=== PATIENT | female | born 1955 | race Caucasian/White ===

== ENCOUNTER 2017-02-22 09:18 | Day surgery (SDC) | payer MEDICARE, OTHER ==
[~2017-02-22] VITALS: Ht 152.4 cm; Wt 60.9 kg
[~2017-02-22 09:18] MED LIST: ACET325 PO; ALBU90OI6 INH; AZIT250 PO; ESCI10 PO; FAMO20 PO; PRED20 PO; PROCODE120 PO; RXTRAM50 PO; TIOT18; TRAM50 PO
[2017-02-22] MEDS ORDERED: CLON.5 PO (09:34)
[2017-02-22] MEDS ORDERED: VITAMIN D5000 UNI1 PO (09:34)
== END 2017-02-22 10:47 | disposition home or self-care (01) ==
LOC: ORSCSDS 09:18
PROVIDERS: Surgery
PROC: 0DJD8ZZ Inspection of Lower Intestinal Tract, Via Natural or Artificial Opening Endoscopic (ICD-10-PCS; principal; 2017-02-22 11:00)
DX: Z12.11 Encounter for screening for malignant neoplasm of colon (principal); Z85.038 Personal history of other malignant neoplasm of large intestine; J44.9 Chronic obstructive pulmonary disease, unspecified; F41.8 Other specified anxiety disorders; E78.5 Hyperlipidemia, unspecified; F17.210 Nicotine dependence, cigarettes, uncomplicated; Z79.899 Other long term (current) drug therapy
CPT/HCPCS: J7120

== ENCOUNTER 2018-07-26 11:59 | Emergency (ER) | payer MEDICARE, OTHER ==
[~2018-07-26] VITALS: Ht 152.4 cm; Wt 63.5 kg
[~2018-07-26 11:59] MED LIST changes: +CLON.5 PO; +VITAMIN D5000 UNI1 PO
[2018-07-26] MEDS ORDERED: WIXELA 500-501 EACH (12:12)
[2018-07-26] MEDS ORDERED: VENL150ER PO (12:13)
[2018-07-26] MEDS ORDERED: LORA1 PO (12:13)
[2018-07-26 12:43] LABS: BASOPHILS ABSOLUTE AUTO 0.03 K/mm3 (0.00-0.23); BASOPHILS PERCENT AUTO 0 % (0-2); EOSINOPHILS ABSOLUTE AUTO 0.03 K/mm3 (0.00-0.68); EOSINOPHILS PERCENT AUTO 0 % (0-6); Hematocrit 40.8 % (33.0-51.0); Hemoglobin 13.4 g/dL (11.5-16.0); IMMATURE GRAN ABSOLUTE AUTO 0.03 K/mm3 (0.00-0.10); IMMATURE GRAN PERCENT AUTO 0 % (0-1); LYMPHOCYTES ABSOLUTE AUTO 1.46 K/mm3 (0.84-5.20); LYMPHOCYTES PERCENT AUTO 20 % (21-46); MONOCYTES ABSOLUTE AUTO 0.47 K/mm3 (0.16-1.47); MONOCYTES PERCENT AUTO 6 % (4-13); Mean Corpuscular HGB Conc 32.8 g/dL (31.5-36.5); Mean Corpuscular Volume 94 fL (80-100); Mean Platelet Volume 10.2 fL (9.1-12.4); NEUTROPHILS ABSOLUTE AUTO 5.31 K/mm3 (1.96-9.15); NEUTROPHILS PERCENT AUTO 73 % (41-73); Platelet Count 243 K/mm3 (150-400); Red Blood Cell Count 4.32 M/mm3 (3.80-5.20); White Blood Cell Count 7.33 K/mm3 (4.00-11.30)
[2018-07-26 13:05] LABS: Alanine Aminotransfer (ALT/SGP 20 U/L (12-78); Albumin/Globulin Ratio 1.1 (0.8-1.8); Alk Phos 86 U/L (50-136); Anion Gap 4 mmol/L (6-16); Aspartate Aminotrans (AST/SGOT 22 U/L (12-37); Bilirubin, Total 0.3 mg/dL (0.1-1.0); Blood Urea Nitrogen 13 mg/dL (8-24); Bun/Creatinine Ratio 19.8 (12.0-20.0); CO2, Blood 29 mmol/L (21-32); Calcium, Blood 8.9 mg/dL (8.5-10.1); Chloride, Blood 105 mmol/L (98-108); Creatinine, Blood 0.66 mg/dL (0.40-1.00); Globulin, Blood 3.6 g/dL (2.2-4.0); Glomerular Filtration Rate >60 (60-); Glucose, Blood 103 mg/dL (70-99); Potassium, Blood 3.4 mmol/L (3.5-5.5); Sodium, Blood 138 mmol/L (136-145); Total Protein, Blood 7.6 g/dL (6.4-8.2)
== END 2018-07-26 14:37 | disposition home or self-care (01) ==
LOC: ER 11:59
PROVIDERS: Physician Assistant
DX: R55 Syncope and collapse (principal); F32.9 Major depressive disorder, single episode, unspecified; F17.200 Nicotine dependence, unspecified, uncomplicated; Z88.0 Allergy status to penicillin; Z79.899 Other long term (current) drug therapy
CPT/HCPCS: 36415; 71046; 80053; 84484; 85025; 93005; 93010; 96361; 96374; 99284-25; J2405; J7030

== ENCOUNTER 2021-03-13 17:44 | Inpatient (IN) | payer OTHER, MEDICARE ==
[~2021-03-13] VITALS: Ht 162.6 cm; Wt 65.8 kg
[~2021-03-13 17:44] MED LIST changes: +LORA1 PO; +VENL150ER PO; -VITAMIN D5000 UNI1 PO; +Vitamin D1000 UNI1 PO; +WIXELA 500-501 EACH
[2021-03-13 18:16] LABS: BASOPHILS ABSOLUTE AUTO 0.04 K/mm3 (0.00-0.23); BASOPHILS PERCENT AUTO 1 % (0-2); EOSINOPHILS ABSOLUTE AUTO 0.11 K/mm3 (0.00-0.68); EOSINOPHILS PERCENT AUTO 2 % (0-6); Hematocrit 43.3 % (33.0-51.0); Hemoglobin 14.5 g/dL (11.5-16.0); IMMATURE GRAN ABSOLUTE AUTO 0.02 K/mm3 (0.00-0.10); IMMATURE GRAN PERCENT AUTO 0 % (0-1); LYMPHOCYTES ABSOLUTE AUTO 0.87 K/mm3 (0.84-5.20); LYMPHOCYTES PERCENT AUTO 12 % (21-46); MONOCYTES ABSOLUTE AUTO 0.74 K/mm3 (0.16-1.47); MONOCYTES PERCENT AUTO 10 % (4-13); Mean Corpuscular HGB Conc 33.5 g/dL (31.5-36.5); Mean Corpuscular Volume 90 fL (80-100); Mean Platelet Volume 10.8 fL (9.1-12.4); NEUTROPHILS ABSOLUTE AUTO 5.57 K/mm3 (1.96-9.15); NEUTROPHILS PERCENT AUTO 76 % (41-73); Platelet Count 334 K/mm3 (150-400); RDW Coefficient Variation 12.9 % (11.7-14.2); RDW Standard Deviation 42.5 fL (35.1-46.3); Red Blood Cell Count 4.84 M/mm3 (3.80-5.20); White Blood Cell Count 7.35 K/mm3 (4.00-11.30)
[2021-03-13 18:41] LABS: Alanine Aminotransfer (ALT/SGP 22 U/L (12-78); Albumin, Blood 4.1 g/dL (3.4-5.0); Albumin/Globulin Ratio 1.2 (0.8-1.8); Alk Phos 94 U/L (50-136); Anion Gap 7 mmol/L (6-16); Aspartate Aminotrans (AST/SGOT 19 U/L (12-37); Bilirubin, Total 0.3 mg/dL (0.1-1.0); Blood Urea Nitrogen 11 mg/dL (8-24); Bun/Creatinine Ratio 16.6 (12.0-20.0); CO2, Blood 27 mmol/L (21-32); Calcium, Blood 9.7 mg/dL (8.5-10.1); Chloride, Blood 102 mmol/L (98-108); Creatinine, Blood 0.66 mg/dL (0.40-1.00); Globulin, Blood 3.3 g/dL (2.2-4.0); Glomerular Filtration Rate >60 (60-); Glucose, Blood 109 mg/dL (70-99); Potassium, Blood 4.1 mmol/L (3.5-5.5); Sodium, Blood 136 mmol/L (136-145); Total Protein, Blood 7.4 g/dL (6.4-8.2); Troponin I 0.233 ng/mL (0.000-0.040)
[2021-03-13] MEDS ORDERED: INGREZZA40 MG PO (23:30)
[2021-03-13] MEDS ORDERED: INGREZZA60 MG PO (23:31)
[2021-03-13] MEDS ORDERED: DESVENLAFAXINE100 M3 PO (23:32)
[2021-03-14 01:48] LABS: Influenza A, PCR NEGATIVE (NEGATIVE); Influenza B, PCR NEGATIVE (NEGATIVE); Resp Syncytial Virus, PCR NEGATIVE (NEGATIVE); SARS-Cov-2 (COVID-19) PCR, MMC NEGATIVE (NEGATIVE)
[2021-03-14 04:15] LABS: BASOPHILS ABSOLUTE AUTO 0.03 K/mm3 (0.00-0.23); BASOPHILS PERCENT AUTO 0 % (0-2); EOSINOPHILS ABSOLUTE AUTO 0.07 K/mm3 (0.00-0.68); EOSINOPHILS PERCENT AUTO 1 % (0-6); Hemoglobin 13.3 g/dL (11.5-16.0); IMMATURE GRAN ABSOLUTE AUTO 0.03 K/mm3 (0.00-0.10); IMMATURE GRAN PERCENT AUTO 0 % (0-1); LYMPHOCYTES ABSOLUTE AUTO 1.15 K/mm3 (0.84-5.20); LYMPHOCYTES PERCENT AUTO 15 % (21-46); MONOCYTES ABSOLUTE AUTO 0.95 K/mm3 (0.16-1.47); MONOCYTES PERCENT AUTO 12 % (4-13); Mean Corpuscular HGB 29.4 pg (26.0-34.0); Mean Corpuscular HGB Conc 33.3 g/dL (31.5-36.5); Mean Corpuscular Volume 89 fL (80-100); Mean Platelet Volume 10.5 fL (9.1-12.4); NEUTROPHILS PERCENT AUTO 71 % (41-73); Platelet Count 315 K/mm3 (150-400); RDW Coefficient Variation 12.9 % (11.7-14.2); Red Blood Cell Count 4.52 M/mm3 (3.80-5.20); White Blood Cell Count 7.73 K/mm3 (4.00-11.30)
[2021-03-14 04:54] LABS: LDL/HDL RATIO 3.3; Very Low Density Lipoprot Chol 18 mg/dL (6-32)
[2021-03-14 04:55] LABS: Alanine Aminotransfer (ALT/SGP 22 U/L (12-78); Albumin, Blood 3.5 g/dL (3.4-5.0); Albumin/Globulin Ratio 0.9 (0.8-1.8); Alk Phos 83 U/L (50-136); Anion Gap 8 mmol/L (6-16); Aspartate Aminotrans (AST/SGOT 26 U/L (12-37); Bilirubin, Total 0.3 mg/dL (0.1-1.0); Blood Urea Nitrogen 9 mg/dL (8-24); Bun/Creatinine Ratio 15.5 (12.0-20.0); CHOL/HDL RATIO 4.7; CO2, Blood 25 mmol/L (21-32); Calcium, Blood 9.3 mg/dL (8.5-10.1); Chloride, Blood 104 mmol/L (98-108); Cholesterol 220 mg/dL (50-200); Creatinine, Blood 0.58 mg/dL (0.40-1.00); Globulin, Blood 3.7 g/dL (2.2-4.0); Glomerular Filtration Rate >60 (60-); Glucose, Blood 119 mg/dL (70-99); HDL Cholesterol 47 mg/dL (>39); Low Density Lipoprotein Chol 155 mg/dL (0-110); Potassium, Blood 3.8 mmol/L (3.5-5.5); Sodium, Blood 137 mmol/L (136-145); Total Protein, Blood 7.2 g/dL (6.4-8.2); Triglycerides 92 mg/dL (30-160)
--- NOTE | 2021-03-14 06:41 | NUR ---
SHIFT SUMMARY PT IS ALERT AND ORIENTED. DENIES CHEST PAIN/ PRESSURE. DENIES SOB. VITALS ARE STABLE. IS ON ROOM AIR. PT WAS ABLE TO AMBULATE TO BED FROM [facility] UPON ARRIVAL. HERPARIN GTT INFUSING. CALL LIGHT IS WITHIN REACH.
--- NOTE | 2021-03-14 17:30 | NUR ---
DR RAMAN IN TO SEE PT THIS AM. PT AGREES TO ANGIOGRAM ON TUESDAY. TRENDING TROPONINS PER MD ORDERS. PT REPORTS NO CHEST PAIN OR SOB TODAY. NO ACUTE EVENTS. WILL CONTINUE TO MONITOR AND REPORT OFF TO LISETH HUFF.
--- NOTE | 2021-03-14 19:44 | NUR ---
CALLED DR ENCISO FOR BREATHING TREATMENT BD PROTOCOL, PT REQUEST AND HISTORY OF COPD. FURTHER ORDERS ENTERED INTO EMAR.
[2021-03-15 02:18] LABS: Hematocrit 39.7 % (33.0-51.0); Hemoglobin 13.4 g/dL (11.5-16.0); Mean Platelet Volume 10.3 fL (9.1-12.4); Platelet Count 291 K/mm3 (150-400)
--- NOTE | 2021-03-15 06:00 | NUR ---
SHIFT SUMMARY PT IS ALERT AND ORIENTED. PT MELA CHEST PAIN/PRESSURE. VITAL SIGNS ARE STABLE AND IS ON ROOM AIR. PT REPORTED FEELING "WINDED" AT TIMES IN THE BEGINING OF SHIFT AND THEN RECIEVED A BREATHING TREAMENT WHICH SEEMED TO HELP. PT IS ABLE TO GO TO BATHROOM SBA. CALL LIGHT IS WITHIN REACH.
--- NOTE | 2021-03-15 18:09 | NUR ---
NO ACUTE EVENTS THIS SHIFT. PT DENIES CHEST PAIN/SOB THROUGHOUT THE DAY. PLAN FOR ANGIOGRAM TOMORROW, NPO AFTER MIDNIGHT, PT VERBALIZES UNDERSTANDING. WILL CONTINUE TO MONITOR AND GIVE REPORT TO NOC SHIFT RN.
[2021-03-16 04:13] LABS: Hematocrit 38.4 % (33.0-51.0); Hemoglobin 13.1 g/dL (11.5-16.0); Mean Platelet Volume 11.3 fL (9.1-12.4); Platelet Count 279 K/mm3 (150-400)
--- NOTE | 2021-03-16 06:00 | NUR ---
SUMMARY NO NEW ISSUES NOTED. PT DENIES CP OR SOB. PT NPO SINCE 0000 HRS. PT SLEPT THROUGHOUT SHIFT WITHOUT INCIDENT. CALL LIGHT IN REACH.
--- NOTE | 2021-03-16 08:04 | NUR ---
RECIEVED MORNING REPORT AND ADMINISTERED MORNING MEDICATION. PT IS RESTING COMOFRTABLY IN BED, NO SIGNS OF DISTRESS AND STATES SHE HAS NO PAIN. DENIES DESIRE TO BATHE OR BURSH HER TEETH AT THIS TIME SHE IS WAITING ON CLEAN CLOTHES TO ARRIVE FROM HER . USED RESTROOM PRIOR TO ASSESSMENT, ABLE TO AMBULATE ON HER OWN. A&O X4, VS STABLE. NPO STATUS DUE TO ANGIOGRAM THIS AFTERNOON. PT STATED SHE DOES NOT NEED ANYTHING AT THIS TIME, CALL LIGHT AND ICE CHIPS WITHIN REACH.
--- NOTE | 2021-03-16 11:40 | NUR ---
Update: Patient arrived back from the earthmoving labourer. Per Olvin HUFF pt has some disease but not enough to stent, she also has broken heart syndrome. Pt has right radial site with TR Band in place, 15cc in band.Per Olvin the patient can go home after her site is recovered, Dr. Lainez notified. VSS. Patient given lunch tray. Will continue to monitor.
[2021-03-16] MEDS ORDERED: ASPI81CH PO (13:55)
[2021-03-16] MEDS ORDERED: ATOR20 PO (13:56)
[2021-03-16] MEDS ORDERED: Lisinopril2.5 MG PO (13:57)
[2021-03-16] MEDS ORDERED: CARV3.125 PO (13:57)
--- NOTE | 2021-03-16 16:17 | NUR ---
Discharge: TR Band fully deflated, opsite placed over site. No oozing noted. at bedside to take patient home. Patient and spouse verbalize understanding of discharge instructions. Arm board in place. Patient to home with spouse via WC.
--- NOTE | 2021-03-16 16:32 | NUR ---
Per Dr. Lainez discharge appropriate on: 03/16/21. Patient does not oppose discharge. Transportation to residence provided by family. DME: none needed. Patient reminded to contact her PCP if any questions regarding medication management/social service needs or go to urgent care if condition worsens. [facility] JOHNNIE will contact patient to schedule hospital PCP follow up Dr. Thelma Bonner. Patient has strong family support. No barriers to discharge at this time.
== END 2021-03-16 16:21 | disposition home or self-care (01) | DRG 281 ==
LOC: ER 17:44 → PCU 23:34
PROVIDERS: Emergency Medicine; Internal Medicine; ADMIT Internal Medicine
PROC: 4A023N7 Measurement of Cardiac Sampling and Pressure, Left Heart, Percutaneous Approach (ICD-10-PCS; principal; 2021-03-16)
PROC: B2111ZZ Fluoroscopy of Multiple Coronary Arteries using Low Osmolar Contrast (ICD-10-PCS; 2021-03-16)
DX: I21.4 Non-ST elevation (NSTEMI) myocardial infarction (principal); I50.22 Chronic systolic (congestive) heart failure; I51.81 Takotsubo syndrome; J44.9 Chronic obstructive pulmonary disease, unspecified; F41.9 Anxiety disorder, unspecified; F32.A Depression, unspecified; E78.5 Hyperlipidemia, unspecified; Z90.49 Acquired absence of other specified parts of digestive tract; Z85.038 Personal history of other malignant neoplasm of large intestine; Z88.0 Allergy status to penicillin; Z79.899 Other long term (current) drug therapy; Z87.891 Personal history of nicotine dependence; Z66 Do not resuscitate; K21.9 Gastro-esophageal reflux disease without esophagitis; G24.01 Drug induced subacute dyskinesia; Z20.822 Contact with and (suspected) exposure to COVID-19; Z53.29 Procedure and treatment not carried out because of patient's decision for other reasons
CPT/HCPCS: 0241U; 36415; 71046; 71260; 76937; 80053; 80061; 83880; 84484; 85014; 85018; 85025; 85049; 85347; 85520; 85730; 93005; 93010; 93306; 93458; 94640; 94760; 99152; 99153; 99285-25; A9270; C1769; C1894; C9113; J1644; J2250; J3010; J7030; J7050; Q9967

== ENCOUNTER 2021-11-10 13:06 | Emergency (ER) | payer OTHER, MEDICARE ==
[~2021-11-10] VITALS: Ht 152.4 cm; Wt 64.9 kg
[~2021-11-10 13:06] MED LIST changes: +ASPI81CH PO; +ATOR20 PO; +CARV3.125 PO; +DESVENLAFAXINE100 M3 PO; +INGREZZA40 MG PO; +INGREZZA60 MG PO; +Lisinopril2.5 MG PO
[2021-11-10 13:56] LABS: BASOPHILS ABSOLUTE AUTO 0.05 K/mm3 (0.00-0.23); BASOPHILS PERCENT AUTO 0 % (0-2); EOSINOPHILS ABSOLUTE AUTO 0.03 K/mm3 (0.00-0.68); EOSINOPHILS PERCENT AUTO 0 % (0-6); Hemoglobin 14.7 g/dL (11.5-16.0); IMMATURE GRAN ABSOLUTE AUTO 0.05 K/mm3 (0.00-0.10); IMMATURE GRAN PERCENT AUTO 0 % (0-1); LYMPHOCYTES ABSOLUTE AUTO 0.88 K/mm3 (0.84-5.20); LYMPHOCYTES PERCENT AUTO 7 % (21-46); MONOCYTES ABSOLUTE AUTO 0.94 K/mm3 (0.16-1.47); MONOCYTES PERCENT AUTO 8 % (4-13); Mean Corpuscular HGB Conc 34.2 g/dL (31.5-36.5); Mean Corpuscular Volume 91 fL (80-100); NEUTROPHILS ABSOLUTE AUTO 10.55 K/mm3 (1.96-9.15); NEUTROPHILS PERCENT AUTO 85 % (41-73); Platelet Count 396 K/mm3 (150-400); RDW Standard Deviation 43.8 fL (35.1-46.3); Red Blood Cell Count 4.74 M/mm3 (3.80-5.20)
[2021-11-10 14:14] LABS: Albumin, Blood 3.9 g/dL (3.4-5.0); Bilirubin, Total 0.3 mg/dL (0.1-1.0); Bun/Creatinine Ratio 13.2 (12.0-20.0); Calcium, Blood 9.8 mg/dL (8.5-10.1); Creatinine, Blood 0.6 mg/dL (0.40-1.00); Globulin, Blood 3.9 g/dL (2.2-4.0); Total Protein, Blood 7.8 g/dL (6.4-8.2)
== END 2021-11-10 19:19 | disposition home or self-care (01) ==
LOC: ER 13:06
PROVIDERS: Physician Assistant
DX: J44.1 Chronic obstructive pulmonary disease with (acute) exacerbation (principal); F17.200 Nicotine dependence, unspecified, uncomplicated
CPT/HCPCS: 36415; 71046; 80053; 83880; 84484; 85025; 93005; 93010; 94644; 94664; J1100

== ENCOUNTER 2021-12-08 15:51 | Emergency (ER) | payer OTHER, MEDICARE ==
[~2021-12-08] VITALS: Ht 152.4 cm; Wt 57.6 kg
[2021-12-08 16:43] LABS: BASOPHILS ABSOLUTE AUTO 0.03 K/mm3 (0.00-0.23); BASOPHILS PERCENT AUTO 0 % (0-2); EOSINOPHILS ABSOLUTE AUTO 0.03 K/mm3 (0.00-0.68); EOSINOPHILS PERCENT AUTO 0 % (0-6); Hematocrit 42.8 % (33.0-51.0); Hemoglobin 14.4 g/dL (11.5-16.0); IMMATURE GRAN ABSOLUTE AUTO 0.04 K/mm3 (0.00-0.10); IMMATURE GRAN PERCENT AUTO 0 % (0-1); LYMPHOCYTES ABSOLUTE AUTO 0.57 K/mm3 (0.84-5.20); LYMPHOCYTES PERCENT AUTO 5 % (21-46); MONOCYTES ABSOLUTE AUTO 0.64 K/mm3 (0.16-1.47); MONOCYTES PERCENT AUTO 5 % (4-13); Mean Corpuscular HGB 30.3 pg (26.0-34.0); Mean Corpuscular HGB Conc 33.6 g/dL (31.5-36.5); Mean Corpuscular Volume 90 fL (80-100); Mean Platelet Volume 10.7 fL (9.1-12.4); NEUTROPHILS ABSOLUTE AUTO 10.94 K/mm3 (1.96-9.15); NEUTROPHILS PERCENT AUTO 89 % (41-73); Platelet Count 293 K/mm3 (150-400); RDW Coefficient Variation 13.2 % (11.7-14.2); RDW Standard Deviation 43.8 fL (35.1-46.3); Red Blood Cell Count 4.76 M/mm3 (3.80-5.20); White Blood Cell Count 12.25 K/mm3 (4.00-11.30)
[2021-12-08 17:10] LABS: Albumin, Blood 4.1 g/dL (3.4-5.0); Albumin/Globulin Ratio 1.2 (0.8-1.8); Bilirubin, Total 0.6 mg/dL (0.1-1.0); Bun/Creatinine Ratio 21.5 (12.0-20.0); Calcium, Blood 9.8 mg/dL (8.5-10.1); Creatinine, Blood 0.6 mg/dL (0.40-1.00); Globulin, Blood 3.3 g/dL (2.2-4.0); Potassium, Blood 3.8 mmol/L (3.5-5.5); Total Protein, Blood 7.4 g/dL (6.4-8.2)
[2021-12-08] MEDS ORDERED: ZOLOFT50 MG PO (18:10)
[2021-12-08] MEDS ORDERED: ONDA4 PO (19:45)
[2021-12-08] MEDS ORDERED: PRED20 PO (19:45)
== END 2021-12-08 20:51 | disposition home or self-care (01) ==
LOC: ER 15:51
PROVIDERS: Physician Assistant
DX: J44.1 Chronic obstructive pulmonary disease with (acute) exacerbation (principal); R11.0 Nausea; E86.0 Dehydration; J06.9 Acute upper respiratory infection, unspecified; Z88.0 Allergy status to penicillin; Z88.8 Allergy status to other drugs, medicaments and biological substances; Z79.899 Other long term (current) drug therapy; Z79.82 Long term (current) use of aspirin; Z87.891 Personal history of nicotine dependence
CPT/HCPCS: 71046; 80053; 83880; 84484; 85025; 93005; 93010; 94644; 94664; J7030

== ENCOUNTER 2022-04-19 15:01 | Emergency (ER) | payer OTHER, MEDICARE ==
[~2022-04-19] VITALS: Ht 157.5 cm; Wt 56.7 kg
[~2022-04-19 15:01] MED LIST changes: +ONDA4 PO; +ZOLOFT50 MG PO
[2022-04-19 15:39] LABS: BASOPHILS ABSOLUTE AUTO 0.04 K/mm3 (0.00-0.23); BASOPHILS PERCENT AUTO 1 % (0-2); EOSINOPHILS ABSOLUTE AUTO 0.14 K/mm3 (0.00-0.68); EOSINOPHILS PERCENT AUTO 3 % (0-6); Hematocrit 42.4 % (33.0-51.0); Hemoglobin 14.1 g/dL (11.5-16.0); IMMATURE GRAN ABSOLUTE AUTO 0.01 K/mm3 (0.00-0.10); IMMATURE GRAN PERCENT AUTO 0 % (0-1); LYMPHOCYTES ABSOLUTE AUTO 0.67 K/mm3 (0.84-5.20); LYMPHOCYTES PERCENT AUTO 13 % (21-46); MONOCYTES ABSOLUTE AUTO 0.56 K/mm3 (0.16-1.47); MONOCYTES PERCENT AUTO 10 % (4-13); Mean Corpuscular HGB 29.8 pg (26.0-34.0); Mean Corpuscular HGB Conc 33.3 g/dL (31.5-36.5); Mean Corpuscular Volume 90 fL (80-100); Mean Platelet Volume 10.9 fL (9.1-12.4); NEUTROPHILS ABSOLUTE AUTO 3.96 K/mm3 (1.96-9.15); NEUTROPHILS PERCENT AUTO 74 % (41-73); Platelet Count 249 K/mm3 (150-400); RDW Coefficient Variation 13.3 % (11.7-14.2); RDW Standard Deviation 44.4 fL (35.1-46.3); Red Blood Cell Count 4.73 M/mm3 (3.80-5.20); White Blood Cell Count 5.38 K/mm3 (4.00-11.30)
[2022-04-19 15:58] LABS: Calcium, Blood 9.5 mg/dL (8.5-10.1); Creatinine, Blood 0.62 mg/dL (0.40-1.00); Potassium, Blood 3.8 mmol/L (3.5-5.5)
[2022-04-19 16:19] LABS: Base Excess Venous 4.1 mmol/L; PCO2 Venous 48.6 mmHg (38-42); pH Blood Venous 7.39 (7.34-7.37)
[2022-04-19 16:41] LABS: Influenza A, PCR NEGATIVE (NEGATIVE); Influenza B, PCR NEGATIVE (NEGATIVE); Resp Syncytial Virus, PCR NEGATIVE (NEGATIVE); SARS-Cov-2 (COVID-19) PCR, MMC NEGATIVE (NEGATIVE)
[2022-04-19] MEDS ORDERED: DOXY100 PO (16:57)
[2022-04-19] MEDS ORDERED: PRED20 PO (16:57)
[2022-04-19] MEDS ORDERED: Ventolin5 MG/1 ML INH (16:58)
== END 2022-04-19 18:49 | disposition home or self-care (01) ==
LOC: ER 15:01
PROVIDERS: Student in an Organized Health Care Education/Training Program
DX: R07.89 Other chest pain (principal); J44.1 Chronic obstructive pulmonary disease with (acute) exacerbation; F41.9 Anxiety disorder, unspecified; Z88.0 Allergy status to penicillin; Z88.8 Allergy status to other drugs, medicaments and biological substances; Z79.899 Other long term (current) drug therapy; Z79.82 Long term (current) use of aspirin; Z79.52 Long term (current) use of systemic steroids; Z87.891 Personal history of nicotine dependence; Z20.822 Contact with and (suspected) exposure to COVID-19
CPT/HCPCS: 0241U; 36415; 71045; 80048; 82803; 83880; 84443; 84484; 85025; 93005; 93010; 94644; 94664; 96374; 99284-25; A9270; J1885; J7512

== ENCOUNTER 2023-03-09 04:58 | Inpatient (IN) | payer OTHER, MEDICARE ==
[2023-03-09] VITALS (21 sets, daily range): BP systolic 80–126; BP diastolic 59–91
[~2023-03-09] VITALS: Ht 152.4 cm; Wt 53.4 kg
[~2023-03-09 04:58] MED LIST changes: +DOXY100 PO; +Ventolin5 MG/1 ML INH
[2023-03-09 05:27] LABS: Base Excess Venous -0.4 mmol/L; Bicarbonate Venous 24.5 mmol/L (24.0-30.0); PCO2 Venous 35.2 mmHg (38-42); pH Blood Venous 7.44 (7.34-7.37)
[2023-03-09 05:29] LABS: Hematocrit 41.7 % (33.0-51.0); Hemoglobin 14.1 g/dL (11.5-16.0); Mean Corpuscular HGB 29.9 pg (26.0-34.0); Mean Corpuscular HGB Conc 33.8 g/dL (31.5-36.5); Mean Corpuscular Volume 89 fL (80-100); Mean Platelet Volume 10.2 fL (9.1-12.4); Platelet Count 507 K/mm3 (150-400); RDW Coefficient Variation 13.6 % (11.7-14.2); RDW Standard Deviation 44.3 fL (35.1-46.3); Red Blood Cell Count 4.71 M/mm3 (3.80-5.20); White Blood Cell Count 15.73 K/mm3 (4.00-11.30)
[2023-03-09 05:58] LABS: D-Dimer, Quantitative 2.27 mg/L FEU (0.00-0.52); International Normalized Ratio 1.07; Prothrombin Time Results 11.2 Sec (9.7-11.5)
[2023-03-09 06:09] LABS: BAND PERCENT MAN 12 % (0-8); BASOPHILS PERCENT MAN 0 % (0-2); EOSINOPHILS ABSOLUTE MAN 0.15 K/mm3 (0.00-0.68); EOSINOPHILS PERCENT MAN 1 % (0-6); LYMPHOCYTES PERCENT MAN 14 % (21-46); METAMYELOCYTE ABSOLUTE MAN 0.15 K/mm3 (0.00-0.00); METAMYELOCYTE PERCENT MAN 1 % (0-0); MONOCYTES PERCENT MAN 7 % (4-13); MYELOCYTE ABSOLUTE MAN 0.31 K/mm3 (0.00-0.00); MYELOCYTE PERCENT MAN 2 % (0-0); NEUTROPHILS ABSOLUTE MAN 11.79 K/mm3 (1.96-9.15); SEG NEUTROPHILS PERCENT MAN 63 % (41-73); TOTAL CELLS COUNTED 100
[2023-03-09 06:10] LABS: Magnesium, Blood 2.2 mg/dL (1.6-2.4)
[2023-03-09 06:14] LABS: Albumin, Blood 2.6 g/dL (3.4-5.0); Albumin/Globulin Ratio 0.5 (0.8-1.8); Bilirubin, Total 0.7 mg/dL (0.1-1.0); Bun/Creatinine Ratio 51.3 (12.0-20.0); Calcium, Blood 9.9 mg/dL (8.5-10.1); Creatinine, Blood 0.57 mg/dL (0.40-1.00); Globulin, Blood 5.7 g/dL (2.2-4.0); Phosphorus, Blood 3.1 mg/dL (2.5-4.9); Potassium, Blood 3.8 mmol/L (3.5-5.5); Total Protein, Blood 8.3 g/dL (6.4-8.2)
[2023-03-09 06:16] LABS: Influenza A, PCR NEGATIVE (NEGATIVE); Influenza B, PCR NEGATIVE (NEGATIVE); Resp Syncytial Virus, PCR NEGATIVE (NEGATIVE); SARS-Cov-2 (COVID-19) PCR, MMC NEGATIVE (NEGATIVE)
--- NOTE | 2023-03-09 11:24 | NUR ---
PT ARRIVED 0820 FROM THE ED WITH CHAYA SALDAÑA,REFUGIO. SHE IS ALERT AND ABLE TO COM- MUNICATE HER NEEDS. SHE IS ON THE BIPAP. PRECEDEX GTT STARTED PER ORDERS OF WHO ARRIVED MOMENTS AFTER SHE DID. ADDITIONAL IV ACCESS WAS OBTAINED AND ANTIBIOTICS HAVE BEEN GIVEN. SHE HAS A PUREWICK IN PLACE. NO EDEMA NOTED. IN TO VISIT BRIEFLY.
[2023-03-09 11:40] LABS: PO2 Arterial 107 mmHg (80-100); pH Blood Arterial 7.35 (7.35-7.45)
--- NOTE | 2023-03-09 17:15 | NUR ---
KARLY WAS CONVINCED THAT THE PUREWICK WAS IN PLACE AND SHE HAD URINATED. THERE WAS NO EVIDENCE IN THE CANISTER. SHE WAS TURNED, CLEANED AND HER SOILED PJ BOTTOMS WERE REMOVED WHILE NEW LINENS AND BED BATH COMPLETED. NEW PUREWICK PLACED. IV SITES CONT TO FLUSH WELL. PRECEDEX INFUSING AT 0.4MCG/KG.
--- NOTE | 2023-03-09 18:10 | NUR ---
KARLY CONTINUES ON THE BIPAP, SETTINGS 14/8 35% FIO2. SHE IS ABLE TO TAKE A BREAK OFF THE BIPAP TO OBTAIN DRINKS OF WATER WITHOUT DROPPING HER SATS. SHE DOES START TO DECLINE TO THE LOW 90'S IF OFF FOR A LONGER PERIOD OF TIME. SHE BEGINS BREATHING IN THE 40-50'S IN RECOVERY AND TAKES A BIT OF TIME TO COME BACK TO 20'S. SHE CONTINUES ON PRECEDEX 0.4, PIV X3 PATENT. PUREWICK IN PLACE, BEDBATH GIVEN. AND DAUGHTER IN LAW VISITED.
--- NOTE | 2023-03-09 21:20 | NUR ---
ASSUMPTION OF CARE: RECEIVED REPORT FROM JESSICA HUFF. PT ALERT AND ORIENTED TO TIME, PERSON, PLACE AND SITUATION. ABLE TO ANSWER QUESTIONS AND MAKE NEEDS KNOWN. PT ON BIPAP WITH SETTINGS 14/8/35%. SPO2 >95%. PT STATES SHE HAS A FEELING OF BEING SHORT OF BREATH BUT IT HAS NOT WORSENED T/O THE DAY. PT ABLE TO TOLERATE SHORT BREAKS FOR DRINKS OF WATER. PT TACHYPNEIC WITH RR 40'S-50'S. LUNG SOUNDS TIGHT AND DIM. PHARMACY TECHNICIAN PER DIEM IN PLACE, SR WITH FREQUENT PVC'S HR 70'S. SBP 120'S. DENIES FEELING CHEST PAIN OR PRESSURE. PRECEDEX INFUSING AT 0.4 MCG/KG/HR WITH A TKO. PIV'S INTACT. PUREWICK IN PLACE. NO BM YET. CALL LIGHT IN REACH, BED LOW AND LOCKED.
[2023-03-10] VITALS (41 sets, daily range): BP systolic 76–139; BP diastolic 59–93
[2023-03-10 03:30] LABS: Hematocrit 37.6 % (33.0-51.0); Hemoglobin 12.1 g/dL (11.5-16.0); Mean Corpuscular HGB 29.3 pg (26.0-34.0); Mean Corpuscular HGB Conc 32.2 g/dL (31.5-36.5); Mean Corpuscular Volume 91 fL (80-100); Mean Platelet Volume 10.4 fL (9.1-12.4); Platelet Count 344 K/mm3 (150-400); RDW Coefficient Variation 13.7 % (11.7-14.2); RDW Standard Deviation 46.6 fL (35.1-46.3); Red Blood Cell Count 4.13 M/mm3 (3.80-5.20); White Blood Cell Count 10.31 K/mm3 (4.00-11.30)
[2023-03-10 03:54] LABS: Albumin, Blood 2.3 g/dL (3.4-5.0); Albumin/Globulin Ratio 0.5 (0.8-1.8); Bilirubin, Total 0.5 mg/dL (0.1-1.0); Bun/Creatinine Ratio 65.2 (12.0-20.0); Calcium, Blood 9.6 mg/dL (8.5-10.1); Creatinine, Blood 0.64 mg/dL (0.40-1.00); Globulin, Blood 4.9 g/dL (2.2-4.0); Potassium, Blood 4.3 mmol/L (3.5-5.5); Total Protein, Blood 7.2 g/dL (6.4-8.2)
[2023-03-10 04:00] LABS: BAND PERCENT MAN 5 % (0-8); BASOPHILS PERCENT MAN 0 % (0-2); EOSINOPHILS PERCENT MAN 0 % (0-6); LYMPHOCYTES % ATYPICAL MANUAL 1 % (0-0); LYMPHOCYTES ABSOLUTE MAN 0.61 K/mm3 (0.84-5.20); LYMPHOCYTES PERCENT MAN 5 % (21-46); METAMYELOCYTE PERCENT MAN 1 % (0-0); MONOCYTES ABSOLUTE MAN 0.41 K/mm3 (0.16-1.47); MONOCYTES PERCENT MAN 4 % (4-13); MYELOCYTE PERCENT MAN 1 % (0-0); NEUTROPHILS ABSOLUTE MAN 9.07 K/mm3 (1.96-9.15); SEG NEUTROPHILS PERCENT MAN 83 % (41-73); TOTAL CELLS COUNTED 100
--- NOTE | 2023-03-10 06:09 | NUR ---
SHIFT SUMMARY: PT CONTINUES TO REMAIN ALERT AND ORIENTED X4 T/O THE SHIFT. PLEASANT AND COOPERATIVE WITH ALL CARE. ABLE TO MAKE NEEDS KNOWN. PT REMAINS ON BIPAP WITH SETTINGS 14/8/35%. SPO2 >94%. PT STATES THAT SHE FEELS IT IS EASIER BREATHE THIS MORNING. RR 20'S. TISSUE RECOVERY TECHNICIAN IN PLACE, SR WITH FREQUENT PVC'S. HR 60'S, SBP 120'S. DENIES CHEST PAIN/PRESSURE. PRECEDEX AT 0.4 MCG/KG/HR INFUSING WITH TKO. PIV'S INTACT. PT UNABLE TO VOID THIS SHIFT. STRAIGHT CATH PERFORMED WITH 1200 ML'S DARK/ROMAN COLORED URINE OUT. NO BM THIS SHIFT. PT TOLERATING SMALL BREAKS FROM BIPAP FOR SIPS OF WATER AND ORAL CARE. CALL LIGHT IN REACH.
--- NOTE | 2023-03-10 12:54 | NUR ---
REASSESSMENT PT HAS BEEN RESTING FOR MOST OF THE MORNING OFF OF THE BIPAP. BIPAP WAS REMOVED ABOUT 0900 AND PT WAS PLACED ON 1L/NC BECAUSE SPO2 WAS RIGHT AT 90%. WITH 1L/NC SPO2 HAS BEEN IN THE HIGH 90S. RR REMAINS IN THE UPPER TEENS TO LOW 20S AND BREATHING IS UNLABORED. PRECEDEX TITRATED OFF SINCE PT IS DOING WELL OFF OF BIPAP CURRENTLY. WILL RESTART IF NEEDED TO TOLERATE BIPAP LATER. LUNGS ARE COARSE IN THE BASES. SR, BP STABLE. NO VOID THIS AM BUT BLADDER SCAN ONLY SHOWED 214ML. DR. DICKERSON OK'D PT TO HAVE A DIET AND SHE ATE A LITTLE BIT OF LUNCH, DRINKING FLUIDS WELL. CONTINUING TO MONITOR.
--- NOTE | 2023-03-10 17:43 | NUR ---
SHIFT SUMMARY PT HAD THE BIPAP OFF AND WORE 1L/NC UNTIL MID AFTERNOON WHENS HE STARTED TO FEEL SHORT OF BREATH AGAIN. BIPAP PUT BACK ON AND PRECEDEX RESTARTED, BUT PT'S RESP RATE REMAINED IN THE 50S. PT SAID SHE FELT VERY ANXIOUS DESPITE THE PRECEDEX. BIPAP EVENTUALLY REMOVED AND PT SAID SHE FELT LIKE HER BREATHING WAS BETTER WITHOUT THE BIPAP, BUT SHE STILL FELT ANXIOUS. TALKED WITH DR. DICKERSON PT TAKES CLONAZEPAM OCCASIONALLY AT HOME FOR ANXIETY. AFTER TALKING WITH PT, DR. DICKERSON GAVE ORDER FOR CLONAZEPAM. THAT WAS GIVEN ALONG WITH BREATHING TREATMENT AND PT STATES SHE IS FEELING A LITTLE BETTER. LUNGS ARE COARSE IN THE BASES, MORE SO ON THE R SIDE AND LESS AIR MOVEMENT ON THE R SIDE. SR, BP STABLE. PT DRANK WATER THROUGHOUT THE DAY. BLADDER SCANS THROUGHOUT THE DAY SHOWED LESS THAN 400ML OF URINE, SO NO STRAIGHT CATH PERFORMED YET. PT'S VISITED TWICE AND WAS UPDATED. CONTINUING TO MONITOR.
--- NOTE | 2023-03-10 19:00 | NUR ---
ASSUMED CARE OF PT AT 1900 PT RESTING IN BED AT THIS TIME. USES CALL LIGHT APROPRIATELY, BED IN LOW POSITION. VITALS WNL. 1.5 LPM NC WITH SPO2 >95%. PRECEDEX ON SB. SEE FULL ASSESSMENT FOR FURTHER INFORMATION.
--- NOTE | 2023-03-10 22:04 | NUR ---
PT REFUSING LARGER PILLS AT THIS TIME. PT UNABLE TO USE STRAWS WELL. THIS RN UNABLE TO GET PT TO TAKE DEPAKOTE PO TABLET AT THIS TIME. PHARMACY CONSULT FOR ALTERNATIVES AND CALL OUT TO DR TO CHANGE ORDER TO IV MEDICATION.
[2023-03-11] VITALS (12 sets, daily range): BP systolic 96–138; BP diastolic 64–90
[2023-03-11 04:00] LABS: Hematocrit 38.7 % (33.0-51.0); Hemoglobin 12.8 g/dL (11.5-16.0); Mean Corpuscular HGB 29.7 pg (26.0-34.0); Mean Corpuscular HGB Conc 33.1 g/dL (31.5-36.5); Mean Corpuscular Volume 90 fL (80-100); Mean Platelet Volume 10.2 fL (9.1-12.4); Platelet Count 393 K/mm3 (150-400); RDW Coefficient Variation 13.4 % (11.7-14.2); RDW Standard Deviation 44.7 fL (35.1-46.3); Red Blood Cell Count 4.31 M/mm3 (3.80-5.20); White Blood Cell Count 16.58 K/mm3 (4.00-11.30)
[2023-03-11 04:36] LABS: Albumin, Blood 2.3 g/dL (3.4-5.0); Anion Gap 4 mmol/L (6-16); BAND PERCENT MAN 9 % (0-8); BASOPHILS PERCENT MAN 0 % (0-2); Blood Urea Nitrogen 32 mg/dL (8-24); Bun/Creatinine Ratio 62.9 (12.0-20.0); CO2, Blood 29 mmol/L (21-32); Calcium, Blood 9.6 mg/dL (8.5-10.1); Chloride, Blood 107 mmol/L (98-108); Creatinine, Blood 0.51 mg/dL (0.40-1.00); EOSINOPHILS PERCENT MAN 0 % (0-6); Glomerular Filtration Rate 101 (60-); Glucose, Blood 142 mg/dL (70-99); LYMPHOCYTES ABSOLUTE MAN 0.49 K/mm3 (0.84-5.20); LYMPHOCYTES PERCENT MAN 3 % (21-46); METAMYELOCYTE ABSOLUTE MAN 0.16 K/mm3 (0.00-0.00); METAMYELOCYTE PERCENT MAN 1 % (0-0); MONOCYTES ABSOLUTE MAN 0.33 K/mm3 (0.16-1.47); MONOCYTES PERCENT MAN 2 % (4-13); MYELOCYTE ABSOLUTE MAN 0.49 K/mm3 (0.00-0.00); MYELOCYTE PERCENT MAN 3 % (0-0); NEUTROPHILS ABSOLUTE MAN 15.08 K/mm3 (1.96-9.15); Phosphorus, Blood 2.5 mg/dL (2.5-4.9); Potassium, Blood 3.8 mmol/L (3.5-5.5); SEG NEUTROPHILS PERCENT MAN 82 % (41-73); Sodium, Blood 140 mmol/L (136-145); TOTAL CELLS COUNTED 100
--- NOTE | 2023-03-11 05:56 | NUR ---
END OF SHIFT SUMMARY A/O X4. PLEASANT AND COOPERATIVE WITH CARE. PT REPORTS FEELING BETTER WITH NO NEED FOR BREATHING TREATMENTS THIS SHIFT. PT DECLINED RT. USES CALL LIGHT APPROPRIATELY. PT IS ABLE TO MOVE IN BED ON HER OWN. DECLINES REPOSITIONS. STRAIGHT CATH DONE MID SHIFT WITH 800 MLS OUT. PT STILL INCONTINENT OF URINE. NO BM THIS SHIFT. 40 MEQ PO KCL GIVEN THIS AM. SOME PVC'S NOTED THROUGHOUT SHIFT. VITALS ALL WNL WITH NO ACUTE FINDINGS TO REPORT. BED IN LOW POSITION, CALL LIGHT IN REACH. CONT TO MONITOR UNTIL REPORT GIVEN TO AM RN.
--- NOTE | 2023-03-11 13:35 | NUR ---
ASSUMED CARE OF PT AT 0700 THIS AM. PT A&OX4, ABLE TO USE CALL LIGHT FOR NEEDS, SEE DOCUMENTED VS AND ASSESSMENT. PT'S AT BEDSIDE THIS AM WHEN DR DICKERSON ROUNDED, UPDATED ON PLAN OF CARE. PT'S STATUS CHANGED TO PCU. THIS RN ENCOURAGED PT BE UP AND MOVING, OUT OF BED TO CHAIR OR COMMODE. PT DECLINED. LATER IN THE DAY, AT LUNCHTIME, THIS RN PLACED A RECLINER CHAIR IN PT'S ROOM, PT AGAIN DECLINED TO GET OOB. REPORT CALLED TO PRETTY HUFF IN PCU. PT HAS NOT VOIDED YET THIS SHIFT. COMMUNICATED TO GET PT OOB MUCH POSSIBLE AND MONITOR URINE OUTPUT CLOSELY. DR DICKERSON UPDATED WELL. PT TRANSFERRED TO PCU 11 WITH ALL BELONGINGS BY WHEELCHAIR. PT ABLE TO STAND AND TRANSFER TO WHEELCHAIR WITHOUT MUCH ASSISTANCE.
--- NOTE | 2023-03-11 13:39 | NUR ---
TRANSFER UPDATE PT ARRIVED TO PCU AT 1330 VIA WHEELCHAIR. PT ON 2L NC AT TIME OF TRANSFER. PT ABLE TO TRANSFER FROM WHEELCHAIR TO BED WITH ASSISTANCE OF ICU COFFEE SOMMELIER AND THIS RN. PT WEAK WHILE TRANSFERING. PT ABLE TO SLIDE HER HIPS TO MIDDLE OF BED WHEN INSTRUCED. 1.5 L NC APLLIED. PT SATS STABLE IN THE 90'S. PT RESP RATE IN THE HIGH 30'S AFTER TRANSFERING TO BED. PT INFORMED THIS RN THAT HER RESP RATE "GETS LIKE THAT WHEN I AM ANXIOUS." PT BOOSTED IN BED AND POSITIONED FOR COMFORT WITH PILLOW UNDER LEGS AND EXTRA PILLOW BEHIND HER HEAD. PT A/O AT TIME OF ARRIVAL. WILL FORWARD TO PRIMARY NURSE.
--- NOTE | 2023-03-11 14:07 | NUR ---
ASSUMPTION OF CARE this rn assumed care at 1330. patient vitals stable. patient is alert and oriented x4. perrla. patient is able to make needs known and use call light appropriately. patient reports no shortness of breath, pain, chest pain/pressure. patient has tight lung sounds and tight crackles in lower bases. patient is on 1.5l nc with spo2 >93%. see shift assessment for further detials. spouse is at bedside. plan of care up to date
--- NOTE | 2023-03-11 17:11 | NUR ---
shift summary patient vitals remain stable. neuro intact. no acute changes.
[2023-03-12 04:22] VITALS: BP 109/65
--- NOTE | 2023-03-12 06:11 | NUR ---
SHIFT SUMMARY PATIENT ALERT, ORIENTED x4, NEEDS ENCOURAGED TO PARTICIPATE WITH PERSONAL CARE/ADLs. BP STABLE. TELE READING SR 60s DURING THE NIGHT. PATIENT TOLERATING RA WHEN AT REST BUT IS REQUIRING OXYGEN WITH ACTIVITY, SPO2 >90%. PATIENT ABLE TO STAND AND PIVOT TO BEDSIDE COMMODE WITH ADEQUATE OUTPUT. NO OTHER CHANGES DURING THE NIGHT, WILL REPORT TO DAY SHIFT RN.
[2023-03-12 07:28] VITALS: BP 128/64
--- NOTE | 2023-03-12 11:37 | NUR ---
am note this rn assumed care at 0700. vital signs stable. tele sr 80s. spo2 >92% on 2l nc. this rn will titrate back to room air as oxygen sats allow. patient is alert and oriented x4. perrla. patient is able to make needs known and follows commands. patient uses call light appropriately. neuro is intact. patient is slow to respond. patient requires encouragement to work with therapies and to get up out of bed. patient is a one person assist with walker and gait belt. see shift assessment for further detials. md burden in room and discussed plan of care with patient. patient verbalized plan and needing to be active to help with her mobility and her current situation.
[2023-03-12 12:54] VITALS: BP 110/68
[2023-03-12 15:37] VITALS: BP 119/66
--- NOTE | 2023-03-12 17:50 | NUR ---
SHIFT SUMMARY patient neuro remains intact and within normal limits. patient vitals stable throughout the shift. tele sr/st. patient switched to medical status. patient walked out of her room about 100feet today and sat in chair for all meals. patient able to void using bedside comode. no acute changes. plan of care up to date.
[2023-03-12 19:19] VITALS: BP 118/61
[2023-03-13 04:48] VITALS: BP 122/69
[2023-03-13 05:10] LABS: Albumin, Blood 2.3 g/dL (3.4-5.0); Anion Gap 3 mmol/L (6-16); Blood Urea Nitrogen 29 mg/dL (8-24); CO2, Blood 31 mmol/L (21-32); Calcium, Blood 9.2 mg/dL (8.5-10.1); Chloride, Blood 107 mmol/L (98-108); Creatinine, Blood 0.46 mg/dL (0.40-1.00); Glomerular Filtration Rate 104 (60-); Glucose, Blood 99 mg/dL (70-99); Phosphorus, Blood 2.4 mg/dL (2.5-4.9); Potassium, Blood 3.7 mmol/L (3.5-5.5); Sodium, Blood 141 mmol/L (136-145)
--- NOTE | 2023-03-13 05:15 | NUR ---
SHIFT SUMMARY MEDICAL NO TELE STATUS PATIENT ALERT AND ORIENTED, ABLE TO MAKE NEEDS KNOWN TO STAFF, REQUIRING ENCOURAGEMENT TO PARTICIPATE IN CARE. BP STABLE, PATIENT ON RA DURING THE NIGHT WITH SPO2 >95%. PATIENT USING BEDSIDE COMMODE WITH MINIMAL ASSISTANCE FROM STAFF, ADEQUATE OUTPUT. NO OTHER CHANGES DURING THE NIGHT. WILL REPORT TO DAY SHIFT RN.
--- NOTE | 2023-03-13 07:30 | NUR ---
ASSUMED CARE: PT RESTING QUIETLY IN BED ON RA. NO TELE DUE TO MEDICAL STATUS. DENIES NEEDS OR CONCERNS AT THIS TIME.
[2023-03-13 07:32] VITALS: BP 130/80
--- NOTE | 2023-03-13 08:15 | NUR ---
GOT PT OUT OF BED AND INTO CHAIR BUT REQUIRED ENCOURAGEMENT TO DO SO. DR DICKERSON CAME TO SEE PT AND IS NOT READY TO DISCHARGE DUE TO LUNG SOUNDS. SEE NEW ORDERS. MED NO TELE STATUS.
[2023-03-13 15:31] VITALS: BP 148/93
--- NOTE | 2023-03-13 17:47 | NUR ---
SHIFT SUMMARY: PT LIKELY TO DC TO SNF IN NEXT COUPLE OF DAYS. ON RA, SOB ON EXERTION. HAS BEEN AMBULATED INTO BATHROOM AND UP TO CHAIR THIS SHIFT. VERIFICATION REP AT BEDSIDE AT THIS TIME. MEDICATED X2 FOR PAIN AND X1 FOR NAUSEA. NO ACUTE NEEDS OR CONCERNS AT THIS TIME.
[2023-03-13 20:41] VITALS: BP 132/76
[2023-03-14 04:36] LABS: Hematocrit 36.8 % (33.0-51.0); Hemoglobin 12.1 g/dL (11.5-16.0); Mean Corpuscular HGB 29.4 pg (26.0-34.0); Mean Corpuscular HGB Conc 32.9 g/dL (31.5-36.5); Mean Corpuscular Volume 90 fL (80-100); Mean Platelet Volume 9.7 fL (9.1-12.4); Platelet Count 327 K/mm3 (150-400); RDW Coefficient Variation 13.2 % (11.7-14.2); RDW Standard Deviation 43.5 fL (35.1-46.3); Red Blood Cell Count 4.11 M/mm3 (3.80-5.20); White Blood Cell Count 10.73 K/mm3 (4.00-11.30)
[2023-03-14 04:58] VITALS: BP 130/82
[2023-03-14 05:03] LABS: Albumin, Blood 2.2 g/dL (3.4-5.0); Anion Gap 1 mmol/L (6-16); Blood Urea Nitrogen 20 mg/dL (8-24); CO2, Blood 33 mmol/L (21-32); Calcium, Blood 8.6 mg/dL (8.5-10.1); Chloride, Blood 107 mmol/L (98-108); Creatinine, Blood 0.54 mg/dL (0.40-1.00); Glomerular Filtration Rate 100 (60-); Glucose, Blood 89 mg/dL (70-99); Phosphorus, Blood 3.3 mg/dL (2.5-4.9); Potassium, Blood 4.2 mmol/L (3.5-5.5); Sodium, Blood 141 mmol/L (136-145)
[2023-03-14 05:37] LABS: BAND PERCENT MAN 1 % (0-8); BASOPHILS PERCENT MAN 0 % (0-2); EOSINOPHILS PERCENT MAN 0 % (0-6); LYMPHOCYTES ABSOLUTE MAN 1.71 K/mm3 (0.84-5.20); LYMPHOCYTES PERCENT MAN 16 % (21-46); METAMYELOCYTE PERCENT MAN 1 % (0-0); MONOCYTES ABSOLUTE MAN 1.18 K/mm3 (0.16-1.47); MONOCYTES PERCENT MAN 11 % (4-13); MYELOCYTE ABSOLUTE MAN 0.21 K/mm3 (0.00-0.00); MYELOCYTE PERCENT MAN 2 % (0-0); NEUTROPHILS ABSOLUTE MAN 7.51 K/mm3 (1.96-9.15); SEG NEUTROPHILS PERCENT MAN 69 % (41-73); TOTAL CELLS COUNTED 100
--- NOTE | 2023-03-14 05:55 | NUR ---
SUMMARY: PT A/OX4, CALLS APPROPRIATE TO SPECIFY NEEDS AND IS PLEASEANT AND COOEPRATIVE W/CARE. SHE'S UP TO TOILET W/SBA AND FWW AND STAFF ENCOURAGED MOBILITY TOLERATED. PT WAS PLACED ON 0.5-1L O2 AT BEGINNING OF SHIFT D/T O2 DESATS TO 88% ON RA W/SHALLOW TACHY RESPS AT REST. RT PROVIDED ALBUTEROL FOR PT REPORT OF IMPROVEMENT IN BREATHING. UNABLE TO COLLECT SPUTUM D/T NO COUGH. LS CLEAR AND DIM IN BASES. SHE RECIEVED KLONOPIN PRN PER REQUEST FOR SLEEP BUT DENIED ALL OTHER COMPLAINTS. NO ACUTE CHANGES, VSS/AFEBRILE. WCTM AND REPORT TO DAY RN.
--- NOTE | 2023-03-14 07:45 | NUR ---
INITIAL ASSESSMENT: Patient is alert and oriented x4, she has a flat affect. She denies pain at this time. HRR. LS DIM T/O, patient is encouraged to use flutter at bedside. She is 93% on 1L oaygen via NC. BT+, pt states she had a BM yesterday-she denies nausea. PPP. Patient is assisted OOB to the chair, minimal assistance required. She is able to get to the chair with the FWW. She denies other needs at this time. Call light in reach.
[2023-03-14 08:00] VITALS: BP 140/84
[2023-03-14 11:23] VITALS: BP 132/76
--- NOTE | 2023-03-14 11:32 | NUR ---
Update: Patient is encouraged to get up to the shower, she states she is not ready to as she is anxious. Klonipin given at this time, we will attempt to assist her with a shower after lunch if her anxiety is manageable.
--- NOTE | 2023-03-14 15:30 | NUR ---
Transfer: Report given to Tonja vyas floor RN. Patient was able to get OOB and to the shower with the assistance of OT and this RN. Patient to room 333, via WC.
[2023-03-14 16:19] VITALS: BP 106/74
--- NOTE | 2023-03-14 19:37 | NUR ---
TRANSFER FROM PCU. ALERT AND ORIENTED X4. WITHDRAWN. ABLE TO MAKE NEEDS KNOWN. R.A AT TIME OF TRANSFER. PER REPORT, WILL NEED 1L NOC. SBA TO BATHROOM, WEAK. ONE EPISODE OF LOOSE STOOL. PT REPORTS NOT NORMAL. BED IS IN THE LOWEST POSITION WITH CALL LIGHT IN REACH.
[2023-03-14 19:51] VITALS: BP 120/77
[2023-03-15 05:33] LABS: Hematocrit 38.6 % (33.0-51.0); Hemoglobin 12.9 g/dL (11.5-16.0); Mean Corpuscular HGB 29.9 pg (26.0-34.0); Mean Corpuscular HGB Conc 33.4 g/dL (31.5-36.5); Mean Corpuscular Volume 90 fL (80-100); Platelet Count 331 K/mm3 (150-400); RDW Coefficient Variation 13.4 % (11.7-14.2); Red Blood Cell Count 4.31 M/mm3 (3.80-5.20); White Blood Cell Count 11.84 K/mm3 (4.00-11.30)
[2023-03-15 05:34] VITALS: BP 130/70
[2023-03-15 06:08] LABS: Bun/Creatinine Ratio 44.1 (12.0-20.0); Calcium, Blood 8.9 mg/dL (8.5-10.1); Creatinine, Blood 0.45 mg/dL (0.40-1.00)
[2023-03-15 06:22] LABS: BAND PERCENT MAN 4 % (0-8); BASOPHILS PERCENT MAN 0 % (0-2); EOSINOPHILS PERCENT MAN 0 % (0-6); LYMPHOCYTES ABSOLUTE MAN 2.13 K/mm3 (0.84-5.20); LYMPHOCYTES PERCENT MAN 18 % (21-46); METAMYELOCYTE ABSOLUTE MAN 0.35 K/mm3 (0.00-0.00); METAMYELOCYTE PERCENT MAN 3 % (0-0); MONOCYTES ABSOLUTE MAN 0.23 K/mm3 (0.16-1.47); MONOCYTES PERCENT MAN 2 % (4-13); MYELOCYTE ABSOLUTE MAN 0.35 K/mm3 (0.00-0.00); MYELOCYTE PERCENT MAN 3 % (0-0); NEUTROPHILS ABSOLUTE MAN 8.76 K/mm3 (1.96-9.15); SEG NEUTROPHILS PERCENT MAN 70 % (41-73); TOTAL CELLS COUNTED 100
--- NOTE | 2023-03-15 06:28 | NUR ---
SHIFT SUMMARY: PT IS ADMITTED FOR ACUTE HYPOXIC RESPIRATORY FAILURE AND IS A FULL CODE. IS ALERT AND ABLE TO MAKE NEEDS KNOWN. ADLs HAVE BEEN 1P STANDBY THROUGH OUT SHIFT. DENIES PAIN OR DISCOMFORT WHEN ASKED. BI-LAT IVS ARE PATENT WITH DRESSINGS THAT ARE CDI.
[2023-03-15 08:01] VITALS: BP 132/76
[2023-03-15 15:43] VITALS: BP 101/53
--- NOTE | 2023-03-15 18:46 | NUR ---
SHIFT SUMMARY: PT A/O X 4, SLOW TO RESPOND, PLEASANT AND COOPERATIVE WITH CARE. PT HAD EPISODE OF SOB THIS AM WHICH RESOLVED WITH BREATHING TX. PT CONTINUED TO BE ON RA THROUGHOUT THE DAY. PT EATING WELL, UP TO BSC TO URINATE. PT HAD BM TODAY. PT DID HAVE ONE EPISODE OF REPORTED "ANXIETY". KLONOPIN GIVEN AND EFFECTIVE.
[2023-03-15 19:24] VITALS: BP 94/57
[2023-03-16 03:04] VITALS: BP 116/67
[2023-03-16 06:01] LABS: Hematocrit 36.9 % (33.0-51.0); Hemoglobin 12.5 g/dL (11.5-16.0); Mean Corpuscular HGB 29.9 pg (26.0-34.0); Mean Corpuscular HGB Conc 33.9 g/dL (31.5-36.5); Mean Corpuscular Volume 88 fL (80-100); Mean Platelet Volume 9.7 fL (9.1-12.4); Platelet Count 339 K/mm3 (150-400); RDW Coefficient Variation 13.7 % (11.7-14.2); RDW Standard Deviation 43.8 fL (35.1-46.3); Red Blood Cell Count 4.18 M/mm3 (3.80-5.20); White Blood Cell Count 10.91 K/mm3 (4.00-11.30)
[2023-03-16 06:27] LABS: Bun/Creatinine Ratio 40.2 (12.0-20.0); Calcium, Blood 8.9 mg/dL (8.5-10.1); Creatinine, Blood 0.5 mg/dL (0.40-1.00); Potassium, Blood 4.1 mmol/L (3.5-5.5)
[2023-03-16 06:32] LABS: BAND PERCENT MAN 2 % (0-8); BASOPHILS PERCENT MAN 0 % (0-2); EOSINOPHILS PERCENT MAN 0 % (0-6); LYMPHOCYTES % ATYPICAL MANUAL 1 % (0-0); LYMPHOCYTES PERCENT MAN 10 % (21-46); METAMYELOCYTE ABSOLUTE MAN 0.21 K/mm3 (0.00-0.00); METAMYELOCYTE PERCENT MAN 2 % (0-0); MONOCYTES ABSOLUTE MAN 0.32 K/mm3 (0.16-1.47); MONOCYTES PERCENT MAN 3 % (4-13); MYELOCYTE PERCENT MAN 1 % (0-0); NEUTROPHILS ABSOLUTE MAN 9.05 K/mm3 (1.96-9.15); SEG NEUTROPHILS PERCENT MAN 81 % (41-73); TOTAL CELLS COUNTED 100
[2023-03-16 08:21] VITALS: BP 110/71
--- NOTE | 2023-03-16 12:34 | NUR ---
PT AMBULATED TO BATHROOM. REMOVED O2 TO AMBULATE. DID WELL ON R/A. MAINTAINED >92%
[2023-03-16 15:59] VITALS: BP 105/64
--- NOTE | 2023-03-16 17:25 | NUR ---
PT PLEASANT BUT WITH FLAT AFFECT TODAY. NO C/O PAIN. DID C/O ANX TODAY, TREATED PER EMAR. DID AMBULATE TO BATHROOM, SATS >92% ON R/A. CONTINUES, ON R/A. IN TO VISIT TODAY. NO NEW CONCERNS NOTED. BED IN LOW POSITION, CALL LITE IN REACH, CALLS APPROP
[2023-03-16 19:22] VITALS: BP 94/50
[2023-03-17 03:40] VITALS: BP 113/62
[2023-03-17 06:07] LABS: BASOPHILS ABSOLUTE AUTO 0.05 K/mm3 (0.00-0.23); BASOPHILS PERCENT AUTO 0 % (0-2); EOSINOPHILS PERCENT AUTO 0 % (0-6); Hematocrit 38.1 % (33.0-51.0); Hemoglobin 12.7 g/dL (11.5-16.0); IMMATURE GRAN ABSOLUTE AUTO 0.45 K/mm3 (0.00-0.10); IMMATURE GRAN PERCENT AUTO 4 % (0-1); LYMPHOCYTES ABSOLUTE AUTO 0.75 K/mm3 (0.84-5.20); LYMPHOCYTES PERCENT AUTO 6 % (21-46); MONOCYTES PERCENT AUTO 4 % (4-13); Mean Corpuscular HGB 29.6 pg (26.0-34.0); Mean Corpuscular HGB Conc 33.3 g/dL (31.5-36.5); Mean Corpuscular Volume 89 fL (80-100); NEUTROPHILS ABSOLUTE AUTO 10.36 K/mm3 (1.96-9.15); NEUTROPHILS PERCENT AUTO 86 % (41-73); Platelet Count 354 K/mm3 (150-400); RDW Coefficient Variation 13.8 % (11.7-14.2); RDW Standard Deviation 44.2 fL (35.1-46.3); Red Blood Cell Count 4.29 M/mm3 (3.80-5.20); White Blood Cell Count 12.11 K/mm3 (4.00-11.30)
[2023-03-17 06:22] LABS: Bun/Creatinine Ratio 44.4 (12.0-20.0); Calcium, Blood 8.8 mg/dL (8.5-10.1); Creatinine, Blood 0.56 mg/dL (0.40-1.00); Potassium, Blood 4.2 mmol/L (3.5-5.5)
[2023-03-17 07:44] VITALS: BP 111/76
[2023-03-17] MEDS ORDERED: LEVO750 PO (10:45)
[2023-03-17] MEDS ORDERED: OMEP20ER PO (10:46)
[2023-03-17] MEDS ORDERED: MIRT15 PO (10:46)
[2023-03-17] MEDS ORDERED: PRED20 PO (10:47)
--- NOTE | 2023-03-17 10:50 | NUR ---
REPORT CALLED TO SANTOS AT [facility]. [phone]. EXPECTING TRANSPORT AT 1100 IV PULLED BY KRISTEL. NO TELE.
--- NOTE | 2023-03-17 12:29 | NUR ---
SPOKE TO CARE MGMT. NO RIDE HERE YET. SHE CALLED. RESET FOR 2PM
--- NOTE | 2023-03-17 14:12 | NUR ---
TRANSPORT HERE TO TAKE PT AT [id number]
== END 2023-03-17 14:15 | DRG 871 ==
LOC: ER 04:58 → ICUE 06:08 → PCU 03-11 13:24 → MEDS 03-14 16:12 → ENPENDDIS 03-17 10:23 → MEDS 03-17 14:15
PROVIDERS: Emergency Medicine; Family Medicine; Internal Medicine; ADMIT Internal Medicine
PROC: 5A09357 Assistance with Respiratory Ventilation, Less than 24 Consecutive Hours, Continuous Positive Airway Pressure (ICD-10-PCS; principal; 2023-03-09)
PROC: 4A033R1 Measurement of Arterial Saturation, Peripheral, Percutaneous Approach (ICD-10-PCS; 2023-03-09)
PROC: 3E03329 Introduction of Other Anti-infective into Peripheral Vein, Percutaneous Approach (ICD-10-PCS; 2023-03-09)
DX: A41.9 Sepsis, unspecified organism (principal); J18.9 Pneumonia, unspecified organism; J96.01 Acute respiratory failure with hypoxia; J44.1 Chronic obstructive pulmonary disease with (acute) exacerbation; J44.0 Chronic obstructive pulmonary disease with (acute) lower respiratory infection; E87.20 Acidosis, unspecified; E78.5 Hyperlipidemia, unspecified; F41.8 Other specified anxiety disorders; G24.01 Drug induced subacute dyskinesia; J43.2 Centrilobular emphysema; K21.9 Gastro-esophageal reflux disease without esophagitis; T42.4X5A Adverse effect of benzodiazepines, initial encounter; R65.20 Severe sepsis without septic shock; Z85.038 Personal history of other malignant neoplasm of large intestine; Z88.0 Allergy status to penicillin; Z88.8 Allergy status to other drugs, medicaments and biological substances; Z79.82 Long term (current) use of aspirin; Z79.899 Other long term (current) drug therapy; Z79.52 Long term (current) use of systemic steroids; Z90.49 Acquired absence of other specified parts of digestive tract; Z90.710 Acquired absence of both cervix and uterus; Z98.890 Other specified postprocedural states; Z87.891 Personal history of nicotine dependence; Z11.52 Encounter for screening for COVID-19
CPT/HCPCS: 0241U; 36415; 36600; 51701; 71045; 71260; 80048; 80053; 80069; 82803; 83605; 83735; 83880; 84100; 84145; 84484; 85025; 85379; 85610; 85730; 87040; 93005; 93010; 93306; 94640; 94660; 94664; 94760; 96361; 96374-59; 96375-59; 97110; 97161; 97165; 97530; 97535; 99285-25; A9270; J0456; J0696; J1650; J1940; J1956; J2250; J2405; J2930; J7030; J7050; J7512; Q9967

== ENCOUNTER 2023-10-07 17:55 | Emergency (ER) | payer MEDICARE ==
[~2023-10-07] VITALS: Ht 152.4 cm; Wt 54.0 kg
[~2023-10-07 17:55] MED LIST changes: +LEVO750 PO; +MIRT15 PO; +OMEP20ER PO
[2023-10-07 18:03] VITALS: BP 109/73
[2023-10-07] MEDS ORDERED: Albuterol HFA200 ACT/6.7 GM INH INH ONE (18:20)
[2023-10-07] MEDS ORDERED: RX Prepack 6 Tabs Oxycodone 5mg UD ONE (19:15)
[2023-10-07] MEDS ORDERED: Percocet 5-3251 EACH PO (19:16)
== END 2023-10-07 19:28 | disposition home or self-care (01) ==
LOC: ER 17:55
DX: S52.572A Other intraarticular fracture of lower end of left radius, initial encounter for closed fracture (principal); S52.612A Displaced fracture of left ulna styloid process, initial encounter for closed fracture; J44.9 Chronic obstructive pulmonary disease, unspecified; W18.30XA Fall on same level, unspecified, initial encounter; Z88.0 Allergy status to penicillin; Z79.899 Other long term (current) drug therapy; Z79.82 Long term (current) use of aspirin; Z79.52 Long term (current) use of systemic steroids; K21.9 Gastro-esophageal reflux disease without esophagitis; E78.5 Hyperlipidemia, unspecified; Z87.891 Personal history of nicotine dependence
CPT/HCPCS: 29125; 73110; 99283-25; A9270